=== PATIENT | male | born 1950 | race Caucasian/White ===

== ENCOUNTER → 2017-03-20 | Day surgery (SDC) | payer OTHER ==
[~2017-03-20] MED LIST: ACETAMINOPHEN 1000 MG/100 ML 100 ML IV; ACETAMINOPHEN/HYDROcodone 325 MG/5 MG TAB PO; DEXAMETHASONE SOD PHOS 4 MG/ML VIAL IV; DO NOT ADM ANY ANTICOAGULANT DRUGS; LIDOCAINE HCL 1% PF 5 ML SYRINGE OTHER; MIDAZOLAM HCL 2 MG/2 ML VIAL; MORPHINE SULFATE 2 MG/ML INJ; MORPHINE SULFATE 4 MG/ML INJ IV; ONDANSETRON HCL 4 MG/2 ML VIAL IV PUSH; PROPOFOL 200 MG/20 ML AMP IV; SODIUM CHLORID 0.9% 500 ML IV; SUCCINYLCHOLINE CHLORIDE 100 MG/5 ML SYRINGE IV PUSH
[2017-03-20] MEDS: CHLORHEXIDINE GLUCONATE 2 % 1 PACK (2 CLOTHS) TOPICAL (05:30)
[2017-03-20] MEDS: LACTATED RINGER'S 1000 ML IV (06:00)
[2017-03-20] MEDS: POVIDONE IODINE 5% (ANTISEPSIS KIT) 4 APPLICATIONS EACH NARE (06:00)
[2017-03-20 06:12] LABS: HEMATOCRIT 39.2 % (39.0-51.0); HEMOGLOBIN 13.6 GM/DL (13.0-17.0); MEAN CELL VOLUME 89.8 FL (80.0-100.0); MEAN CORPUSCULAR HEMOGLOBIN 31.2 PG (27.0-34.0); MEAN CORPUSCULAR HGB CONC 34.7 % (32.0-36.0); MEAN PLATELET VOLUME 8.3 FL (7.0-11.0); PLATELET COUNT 154 TH/MM3 (150-450); RED BLOOD COUNT 4.36 MIL/MM3 (4.50-5.90); WHITE BLOOD COUNT 5.5 TH/MM3 (4.0-11.0)
[2017-03-20 06:17] LABS: HEMO FLAGS AUTO DIFF
[2017-03-20] MEDS: METOPROLOL TARTRATE 25 MG TAB PO (06:20)
[2017-03-20 06:58] LABS: BANDS 1 % (0-6); LYMPHOCYTES 8 % (9-44); MONOCYTES 12 % (0-8); NEUTROPHIL # MANUAL DIFF 4.4 TH/MM3 (1.8-7.7); POLYS (SEG NEUTROPHILS) 79 % (16-70); WBC DIFF SAMPLE 100
[2017-03-20 06:59] LABS: PLATELET ESTIMATE SMEAR NORMAL (NORMAL); PLATELET MORPHOLOGY NORMAL (NORMAL); SCAN/DIFF FINAL DIFF MANUAL
== END | disposition home or self-care (01) ==
LOC: HSDC 05:11
DX: C09.9 Malignant neoplasm of tonsil, unspecified (principal); I10 Essential (primary) hypertension; E78.5 Hyperlipidemia, unspecified
CPT/HCPCS: 00320; 85007; 85027; 88304; 88305; 93005

== ENCOUNTER 2017-04-18 08:17 | Day surgery (SDC) | payer OTHER ==
[~2017-04-18] VITALS: Ht 172.7 cm; Wt 98.2 kg
[~2017-04-18 08:17] MED LIST changes: -ACETAMINOPHEN 1000 MG/100 ML 100 ML IV; -ACETAMINOPHEN/HYDROcodone 325 MG/5 MG TAB PO; -DEXAMETHASONE SOD PHOS 4 MG/ML VIAL IV; -DO NOT ADM ANY ANTICOAGULANT DRUGS; +ECASA81 PO; +FLUT1SPR5 EACH NARE; +HYDR-3516 PO; -LIDOCAINE HCL 1% PF 5 ML SYRINGE OTHER; +LISI-519 PO; +METO50TA PO; -MIDAZOLAM HCL 2 MG/2 ML VIAL; -MORPHINE SULFATE 2 MG/ML INJ; -MORPHINE SULFATE 4 MG/ML INJ IV; +OMEP20TA93 PO; -ONDANSETRON HCL 4 MG/2 ML VIAL IV PUSH; -PROPOFOL 200 MG/20 ML AMP IV; +ROSU1TAB4 PO; -SODIUM CHLORID 0.9% 500 ML IV; -SUCCINYLCHOLINE CHLORIDE 100 MG/5 ML SYRINGE IV PUSH; +TOFA5TAB PO; +TRAM50TA PO
[2017-04-18 08:30] VITALS: BP 147/86; PULSE 53; RESP 20; TEMP 98.4; O2SAT 99
[2017-04-18] MEDS ORDERED: VITA2000 PO (08:53)
[2017-04-18] MEDS ORDERED: ceFAZolin 2 GM PREMIX 50 ML - implanted port/tunneled catheter insertion IV SCH (09:00)
[2017-04-18] MEDS ORDERED: SODIUM CHLORIDE 0.9% 1000 ML IV SCH (09:00)
[2017-04-18 09:21] LABS: PROTHROMBIN TIME - PATIENT 10.2 SEC (9.8-11.6)
[2017-04-18] MEDS: VANCOMYCIN 1000 MG/NS 250 ML - implanted port/tunneled catheter IV SCH ×4 (09:35→09:37)
[2017-04-18] MEDS ORDERED: MIDAZOLAM HCL 2 MG/2 ML VIAL ONE (10:17)
--- NOTE | 2017-04-18 11:20 | PD.RAD ---
Post Procedure Progress Note Pre Procedure Diagnosis: (1) Tonsillar cancer Post Procedure Diagnosis: (1) Tonsillar cancer Procedure Date: Apr 18, 2017 Supervising Radiologist: Meek Guallpa JR Proceduralist/Assist: Ani Bassett, RT(R)(), Myrna Hull RT(R) Anesthesia: Conscious Sedation Plan of Activity Patient to Unit: ROPU Patient Condition: Good See PACS Report for procedural detail/treatment Central Venous Access Device Procedure 1 Right Internal Jugular Infusaport Placement single lumen Polish: 8 Findings: Port in good position and functions well. OK to use Plan F/U with IR or a physician in 10-14 days for a site check Jr. Ramu,Meek Rivera MD Apr 18, 2017 11:20
[2017-04-18 11:25] VITALS: BP 129/72; PULSE 53; RESP 16; TEMP 97.6; O2SAT 94
[2017-04-18] MEDS ORDERED: SODIUM CHLORIDE 0.9% FLUSH 10 ML FLUSH IVF PRN (11:30)
[2017-04-18 11:40] VITALS: BP 143/76; PULSE 66; RESP 16; O2SAT 97
[2017-04-18 12:10] VITALS: BP 111/56; PULSE 61; RESP 18; O2SAT 95
--- NOTE | 2017-04-18 12:12 | RADRPT ---
EXAM DATE/TIME: 04/18/2017 10:12 [facility] COMPARISON: No previous studies available for comparison. INDICATIONS : Patient with a history of tonsillar cancer. MEDICAL HISTORY : Rheumatoid arthritis Myocardial infarction GERD Kidney stones Tonsillar cancer SURGICAL HISTORY : Coronary stents Colonoscopy ENCOUNTER: Initial ACUITY: 2 months PAIN SCORE: 3/10 LOCATION: Back FLUORO TIME: 0.4 minutes IMAGE SERIES: 1 SEDATION TIME: 30 minutes ACCESS: Right internal jugular vein SEDATION: 1.) 2.5 mg midazolam (Versed) IV 2.) 125 mcg fentanyl (Sublimaze) IV Prophylactic antibiotics were administered with appropriate pre-procedure timing. Vancomycin within 2 hours of procedure, Ancef (or alternative) within 1 hour of procedure. DEVICE: 1. 8 Ukrainian single lumen Bard Power Port PROCEDURE : 1. Continuous pulse oximetry and EKG monitoring. 2. Intravenous conscious sedation. 3. Ultrasound guidance for venous access. 4. Fluoroscopic guided implantable central venous port placement. The patient was placed supine. The neck was prepped in sterile fashion. Full sterile technique was u sed, including cap, mask, sterile gloves and gown, and a large sterile sheet. Hand hygiene and 2% ch lorhexidine Betadine was utilized per protocol for cutaneous antisepsis with appropriate dry time for site. Sterile gel and sterile probe cover were utilized for ultrasound guidance. The skin and sub cutaneous tissues were infiltrated with local anesthetic solution. Under direct ultrasound guidance, central venous access was accomplished in the targeted vessel. The ultrasound images depicting access guidance were stored and saved to PACS for permanent record. A s ubcutaneous pocket was created using blunt dissection. The port was introduced to the pocket. The c atheter tubing was fed through a subcutaneous tunnel to the venotomy site. The catheter tubing was c ut to a suitable length and then was introduced through a valved Peel-Away sheath and positioned with catheter tubing tip at the cavo-atrial junction level. The pocket incision was closed with subcutic ular Vicryl suture. Steri-Strips were applied. The port was flushed and locked with heparin solutio n per protocol. Sterile dressing was applied to the site. The patient tolerated the procedure well. Conscious sedation was performed with the prescribed dosages and duration as above in the presence of an independent trained radiology nurse to assist in the monitoring of the patient. EKG and oximetry remained stable throughout the procedure. The patient tolerated the procedure well and there were no complications. The patient was sent to post anesthesia recovery in stable condition. CONCLUSION: Uncomplicated ultrasound and fluoroscopic guided implanted central venous port catheter placement as described in detail above. An 8 Ukrainian Power port was placed. Meek Guallpa Jr., MD on April 18, 2017 at 12:10 Board Certified Radiologist. This report was verified electronically.
[2017-04-18 12:40] VITALS: BP 110/73; PULSE 72; RESP 20; O2SAT 97
== END 2017-04-18 13:15 | disposition home or self-care (01) ==
LOC: HROP 08:17 → HRIP 08:20 → HROP 13:15
PROVIDERS: ATTEND Internal Medicine
DX: Z45.2 Encounter for adjustment and management of vascular access device (principal); C09.9 Malignant neoplasm of tonsil, unspecified; K21.9 Gastro-esophageal reflux disease without esophagitis; M06.9 Rheumatoid arthritis, unspecified; I25.2 Old myocardial infarction; Z95.5 Presence of coronary angioplasty implant and graft; Z87.442 Personal history of urinary calculi; Z79.82 Long term (current) use of aspirin
CPT/HCPCS: 36561; 76937; 77001; 85610; 85730; 99152; 99153; C1788; J0690; J1642; J2250; J3010; J3370; J7030; J7050

== ENCOUNTER 2017-05-20 09:16 | Day surgery (SDC) | payer OTHER ==
[~2017-05-20] VITALS: Ht 172.7 cm; Wt 88.6 kg
[~2017-05-20 09:16] MED LIST changes: +VITA2000 PO
[2017-05-20] MEDS ORDERED: IOHEXOL 350 MG/ML 50 ML BTL (for RAD DIAG) G-TUBE ONE (09:17)
[2017-05-20 09:25] VITALS: BP 168/90; PULSE 90; RESP 18; TEMP 98.1
[2017-05-20] MEDS ORDERED: SODIUM CHLORIDE 0.9% 1000 ML IV SCH (10:00)
[2017-05-20 10:25] VITALS: BP 134/81; PULSE 80; RESP 18; TEMP 98.5; O2SAT 95
[2017-05-20 10:42] LABS: INTERNATIONAL NORMALIZED RATIO 1.1 RATIO; PROTHROMBIN TIME - PATIENT 10.8 SEC (9.8-11.6)
[2017-05-20] MEDS ORDERED: MIDAZOLAM HCL 5 MG/5 ML VIAL ONE (11:28)
[2017-05-20] MEDS ORDERED: fentaNYL CITRATE 250 MCG/5 ML AMP ONE (11:28)
[2017-05-20] MEDS ORDERED: GLUCAGON 1 MG/ML VIAL ONE (11:28)
--- NOTE | 2017-05-20 15:38 | PD.RAD ---
Post Procedure Progress Note Pre Procedure Diagnosis: (1) Tonsillar cancer Post Procedure Diagnosis: (1) Tonsillar cancer Procedure Date: May 20, 2017 Supervising Radiologist: Meek Guallpa JR Proceduralist/Assist: Raquel Rodriguez, RT(R)(CV), Myrna Hull RT(R) Anesthesia: Conscious Sedation Plan of Activity Patient to Unit: ROPU Patient Condition: Good See PACS Report for procedural detail/treatment Feeding Tube Gastrostomy Placement Armenian: 18 Findings: G tube in good position. OK to use. Plan T fasteners will fall off on their own in approx 3 weeks. Jr. Ramu,Meek Rivera MD May 20, 2017 15:38
[2017-05-20 15:45] VITALS: BP 114/76; PULSE 80; RESP 18; TEMP 98.6; O2SAT 97
[2017-05-20 16:00] VITALS: BP 113/78; PULSE 76; RESP 18; O2SAT 99
--- NOTE | 2017-05-20 16:11 | RADRPT ---
EXAM DATE/TIME: 05/20/2017 14:28 [facility] COMPARISON: No previous studies available for comparison. INDICATIONS : Patient with left tonsillary mass.Invasive squamous cell carcinoma. MEDICAL HISTORY : 1. CAD 2. WI 3. kidney stones 4. acid reflux 5. HTN 6. Rheumatoid arthritis SURGICAL HISTORY : 1. Coronary stents 2.Lt tonsill Bx 3. Colonoscopy 4. Nisssen procedure ENCOUNTER: Initial ACUITY: 1 month PAIN SCORE: 0/10 FLUORO TIME: 2.2 minutes IMAGE SERIES: 2 SEDATION TIME: 30 minutes CONTRAST: 20 cc Omnipaque (iohexol) 350 MEDICATION(S): 1.) 4 mg midazolam (Versed) IV 2.) 200 mcg Fentanyl (Sublimaze) IV DEVICE(S): 1.) 18 Fr gastrostomy tube PROCEDURE : 1. Limited abdominal ultrasound. 2. Fluoroscopically guided gastrostomy tube placement. 3. Conscious sedation with continuous EKG and oximetry monitoring. The risks, benefits and alternatives to the procedure were explained and verbal and written consent w as obtained. The site was prepped in sterile fashion. Full sterile technique was used, including ca p, mask, sterile gloves and gown and a large sterile sheet. Hand hygiene and 2% chlorhexidine and/or betadine/alcohol prep was utilized per protocol for cutaneous antisepsis. The skin and subcutaneous tissues were infiltrated with local anesthetic solution. Sterile gel and sterile probe cover were u tilized for ultrasound guidance. Ultrasound was used to felicity the position of the liver. The stomach was insufflated with room air. Th ree percutaneous fasteners were placed to secure the anterior gastric wall. A small incision was made between the fasteners. The stomach was accessed with an 18 gauge needle. A n 0.035 wire was advanced into the small bowel. The tract was dilated. The gastrostomy tube was int roduced through a peel-away sheath. The position was confirmed with an injection of contrast. Conscious sedation was performed with the prescribed dosages and duration as above in the presence of an independent trained radiology nurse to assist in the monitoring of the patient. EKG and oximetry remained stable throughout the procedure. The patient tolerated the procedure well and there were n o complications. The patient was sent to post anesthesia recovery in stable condition. CONCLUSION: Uncomplicated gastrostomy tube placement as above. Meek Guallpa Jr., MD on May 20, 2017 at 16:07 Board Certified Radiologist. This report was verified electronically.
[2017-05-20 16:30] VITALS: BP 111/78; PULSE 71; RESP 16; O2SAT 99
[2017-05-20 17:00] VITALS: BP 125/79; PULSE 70; RESP 18; O2SAT 99
== END 2017-05-20 17:42 | disposition home or self-care (01) ==
LOC: HROP 09:16 → HRIP 09:20 → HROP 17:42
PROVIDERS: ATTEND Radiology Radiation Oncology
DX: C09.8 Malignant neoplasm of overlapping sites of tonsil (principal); I25.10 Atherosclerotic heart disease of native coronary artery without angina pectoris; K21.9 Gastro-esophageal reflux disease without esophagitis; I10 Essential (primary) hypertension; M06.9 Rheumatoid arthritis, unspecified; Z95.5 Presence of coronary angioplasty implant and graft; Z87.442 Personal history of urinary calculi; Z01.818 Encounter for other preprocedural examination
CPT/HCPCS: 49440; 85610; 85730; 99152; 99153; C1769; C1887; J0690; J1610; J2250; J3010; Q9967

== ENCOUNTER 2017-06-02 10:00 | Emergency (ER) | payer OTHER ==
[~2017-06-02] VITALS: Ht 172.7 cm; Wt 87.5 kg
[2017-06-02 10:08] VITALS: BP 128/79; PULSE 116; RESP 22; TEMP 97.9; O2SAT 98
[2017-06-02 10:28] VITALS: BP 108/72; PULSE 114; RESP 12; O2SAT 97
--- NOTE | 2017-06-02 10:35 | PD ---
HPI Chief Complaint: Field Sales Specialist Problem Time Seen by Provider: 10:34 Travel History International Travel<30 days: No Contact w/Intl Traveler<30days: No Traveled to known affect area: No PFSH Past Medical History Cancer: Yes (THROAT) Cardiovascular Problems: Yes (2 X STENTS) Diabetes: No Endocrine: No Gastrointestinal Disorders: Yes (GERD, DIFFICULTY SWALLOWING) Genitourinary: Yes (KIDNEY DISEASE MILD) Hepatitis: No Hiatal Hernia: No Hypertension: Yes Immune Disorder: Yes (RA) Musculoskeletal: Yes (RA) Neurologic: No Psychiatric: No Reproductive: No Respiratory: No Immunizations Current: Yes Thyroid Disease: No Past Surgical History Abdominal Surgery: Yes (WALTER PROCEDURE 1998) AICD: No Body Medical Devices: 2 CARDIAC Cardiac Surgery: Yes (2 STENTS) Ear Surgery: No Endocrine Surgery: No Eye Surgery: No Genitourinary Surgery: No Gynecologic Surgery: Yes (VASECTOMY) Joint Replacement: No Oral Surgery: No Pacemaker: No Thoracic Surgery: No Other Surgery: Yes Social History Alcohol Use: No Tobacco Use: No Substance Use: No Allergies-Medications (Allergen,Severity, Reaction): Coded Allergies: No Known Allergies (Unverified , 04/18/17) Reported Meds & Prescriptions Reported Meds & Active Scripts Active Reported Vitamin D3 (Cholecalciferol) 2,000 Unit Cap 2,000 Units PO DAILY Aspirin DR (Aspirin) 81 Mg Tabdr 81 Mg PO DAILY Hydrocodone-Acetaminophen 5-325 mg Tab 1 Tab PO Q6H PRN Flonase Nasal [place] (Fluticasone Nasal [place]) 50 Mcg/Act [place] 100 Mcg EACH NARE HS Omeprazole 20 Mg Tab 20 Mg PO BID Lisinopril 5 Mg Tab 5 Mg PO DAILY Xeljanz (Tofacitinib) 5 Mg Tab 5 Mg PO BID Tramadol (Tramadol HCl) 50 Mg Tab 50 Mg PO Q8H PRN Rosuvastatin (Rosuvastatin Calcium) 5 Mg Tab 5 Mg PO HS Metoprolol Tartrate 50 Mg Tab 50 Mg PO BID Data Data Last Documented VS Vital Signs Date Time Temp Pulse Resp B/P (MAP) Pulse Ox O2 Delivery O2 Flow Rate FiO2 06/02/17 12:41 06/02/17 10:28 114 12 97 Room Air 06/02/17 10:08 97.9 Orders Orders Abdomen, Single View (06/02/17 ) Ed Discharge Order (06/02/17 12:32) Sanaz Jauregui MD Jun 02, 2017 10:35
--- NOTE | 2017-06-02 12:15 | RADRPT ---
EXAM DATE/TIME: 06/02/2017 11:44 [facility] COMPARISON: No previous studies available for comparison. INDICATIONS : Post G tube placement. MEDICAL HISTORY : Myocardial infarction. Hypertension Coronary artery disease. SURGICAL HISTORY : Coronary artery stent. ENCOUNTER: Initial ACUITY: 1 day PAIN SCORE: 0/10 LOCATION: abdomen. FINDINGS: There is a percutaneous gastrotomy tube present with the tip identified within the distal portion of the stomach. Contrast opacifies the stomach and duodenum and jejunum without evidence of extravasatio n. Examination of the abdomen demonstrates a normal bowel gas pattern. No free air is identified. No o rganomegaly is evident. Osseous structures are intact. CONCLUSION: No evidence of obstruction.Percutaneous gastrotomy tube appropriate position. No evidence of leak. Rosalinda Echevarria MD on June 02, 2017 at 12:11 Board Certified Radiologist. This report was verified electronically.
--- NOTE | 2017-06-02 12:27 | PD ---
HPI Chief Complaint: Lead Housekeeper Problem Time Seen by Provider: 11:35 Travel History International Travel<30 days: No Contact w/Intl Traveler<30days: No Traveled to known affect area: No History of Present Illness HPI 66 year old male presents to the emergency department after his G tube popped out around 8am this morning. Ghada has history of RA, UT with stent x2, acid reflux, renal stones, head and neck cancer. He is currently undergoing chemotherapy and radiation therapy for cancer. He had G tube placed 2 weeks ago for inability to swallow. He states he has been getting nauseated after feedings. Patient states current pain is 7/10 without radiation, aching. Mild severity. PFSH Past Medical History Cancer: Yes (THROAT) Cardiovascular Problems: Yes (2 X STENTS) Diabetes: No Endocrine: No Gastrointestinal Disorders: Yes (GERD, DIFFICULTY SWALLOWING) Genitourinary: Yes (KIDNEY DISEASE MILD) Hepatitis: No Hiatal Hernia: No Hypertension: Yes Immune Disorder: Yes (RA) Musculoskeletal: Yes (RA) Neurologic: No Psychiatric: No Reproductive: No Respiratory: No Immunizations Current: Yes Thyroid Disease: No Past Surgical History Abdominal Surgery: Yes (WALTER PROCEDURE 1998) AICD: No Body Medical Devices: 2 CARDIAC Cardiac Surgery: Yes (2 STENTS) Ear Surgery: No Endocrine Surgery: No Eye Surgery: No Genitourinary Surgery: No Gynecologic Surgery: Yes (VASECTOMY) Joint Replacement: No Oral Surgery: No Pacemaker: No Thoracic Surgery: No Other Surgery: Yes Social History Alcohol Use: No Tobacco Use: No Substance Use: No Allergies-Medications (Allergen,Severity, Reaction): Coded Allergies: No Known Allergies (Unverified , 04/18/17) Reported Meds & Prescriptions Reported Meds & Active Scripts Active Reported Vitamin D3 (Cholecalciferol) 2,000 Unit Cap 2,000 Units PO DAILY Aspirin DR (Aspirin) 81 Mg Tabdr 81 Mg PO DAILY Hydrocodone-Acetaminophen 5-325 mg Tab 1 Tab PO Q6H PRN Flonase Nasal [place] (Fluticasone Nasal [place]) 50 Mcg/Act [place] 100 Mcg EACH NARE HS Omeprazole 20 Mg Tab 20 Mg PO BID Lisinopril 5 Mg Tab 5 Mg PO DAILY Xeljanz (Tofacitinib) 5 Mg Tab 5 Mg PO BID Tramadol (Tramadol HCl) 50 Mg Tab 50 Mg PO Q8H PRN Rosuvastatin (Rosuvastatin Calcium) 5 Mg Tab 5 Mg PO HS Metoprolol Tartrate 50 Mg Tab 50 Mg PO BID Review of Systems Except as stated in HPI: all other systems reviewed are Neg Physical Exam Narrative GENERAL: Well developed, well nourished male patient, afebrile. SKIN: Warm and dry. HEAD: Normocephalic. Atraumatic. EYES: No scleral icterus. No injection or drainage. NECK: Supple, trachea midline. No JVD or lymphadenopathy. CARDIOVASCULAR: Regular rate and rhythm without murmurs, gallops, or rubs. RESPIRATORY: Breath sounds equal bilaterally. No accessory muscle use. Lung sounds are clear to auscultation. GASTROINTESTINAL: Abdomen soft, non-tender, nondistended. Patient has g tube insertion site to right abdomen without evidence of infection. MUSCULOSKELETAL: No cyanosis, or edema. BACK: Nontender without obvious deformity. No CVA tenderness. Data Data Last Documented VS Vital Signs Date Time Temp Pulse Resp B/P (MAP) Pulse Ox O2 Delivery O2 Flow Rate FiO2 06/02/17 10:28 114 12 108/72 (84) 97 Room Air 06/02/17 10:08 97.9 Orders Orders Abdomen, Single View (06/02/17 ) Ed Discharge Order (06/02/17 12:32) MDM Medical Decision Making Medical Screen Exam Complete: Yes Emergency Medical Condition: Yes Medical Record Reviewed: Yes Interpretation(s) x-ray abdomen - CONCLUSION: No evidence of obstruction.Percutaneous gastrotomy tube appropriate position. No evidence of leak. Differential Diagnosis g tube malfunction vs. nausea/vomiting vs. medical clearance Narrative Course 66 year old male presents to the emergency department after his g tube fell out. G tube is replaced with 18F G tube. X-ray with Gastrografin is ordered to verify placement. X-ray shows no evidence of obstruction.Percutaneous gastrotomy tube appropriate position. No evidence of leak. Patient is to follow up with oncology. He is to return for any acute, worsening of symptoms. Diagnosis Primary Impression: Gastrostomy tube dysfunction Patient Instructions: General Instructions, Tube Feeding (GEN) Additional Instructions: Follow up with oncologist. Return to the emergency department for any acute, worsening of symptoms. Med/Other Pt SpecificInfo: No Change to Meds Disposition: 01 DISCHARGE HOME Condition: Stable Thersee Simons Jun 02, 2017 12:27
== END 2017-06-02 12:41 | disposition home or self-care (01) ==
LOC: NEPC 10:00
DX: K94.23 Gastrostomy malfunction (principal); C14.0 Malignant neoplasm of pharynx, unspecified; I10 Essential (primary) hypertension
CPT/HCPCS: 74018; 99284

== ENCOUNTER 2017-06-04 19:58 | Emergency (ER) | payer OTHER ==
[2017-06-04 20:23] VITALS: BP 131/72; PULSE 72; RESP 16; TEMP 99.3; O2SAT 95
[2017-06-04] MEDS ORDERED: ONDANSETRON HCL 4 MG/2 ML VIAL IV PUSH ONE (22:00)
--- NOTE | 2017-06-04 22:01 | RADRPT ---
EXAM DATE/TIME: 06/04/2017 21:33 [facility] COMPARISON: No previous studies available for comparison. INDICATIONS : Fever. MEDICAL HISTORY : Renal calculi. Rheumatoid arthritis. Myocardial infarction. Hypertension Coronary artery disease , Invasive squamous cell carcinoma SURGICAL HISTORY : Coronary artery stent. Lt tonsil Bx, Infusaport, G-tube ENCOUNTER: Initial ACUITY: 1 day PAIN SCORE: 0/10 LOCATION: Bilateral chest FINDINGS: A single view of the chest demonstrates the lungs to be symmetrically aerated without evidence of mas s, infiltrate or effusion. The cardiomediastinal contours are unremarkable. Osseous structures are intact. There is a right subclavian implantable port catheter in place. CONCLUSION: No acute disease. Tyrese Araujo MD on June 04, 2017 at 21:58 Board Certified Radiologist. This report was verified electronically.
--- NOTE | 2017-06-04 22:03 | RADRPT ---
EXAM DATE/TIME: 06/04/2017 21:34 [facility] COMPARISON: ABDOMEN SINGLE VIEW, June 02, 2017, 11:44. EXTERNAL COMPARISON : INDICATIONS : Evaluate G-tube placement. MEDICAL HISTORY : Renal calculi. Rheumatoid arthritis. Myocardial infarction. Hypertension Coronary artery disease , Invasive squamous cell carcinoma SURGICAL HISTORY : Coronary artery stent. Lt tonsil Bx, Infusaport, G-tube ENCOUNTER: Initial ACUITY: 1 day PAIN SCORE: 0/10 LOCATION: Left upper quadrant abdomen FINDINGS: 2 AP supine views of the abdomen and upper and mid pelvis were obtained. This demonstrates a gastrost jenifer tube in place with contrast in the stomach and proximal small bowel. The gastrostomy tube is loca geraldine in the mid to distal stomach with no extravasation of contrast. There is no free air. The bowel g as pattern is unremarkable. CONCLUSION: Gastrostomy tube in place in the mid to distal stomach. Tyrese Araujo MD on June 04, 2017 at 21:59 Board Certified Radiologist. This report was verified electronically.
[2017-06-04 22:19] LABS: AUTOMATED NEUTROPHIL # 1.1 TH/MM3 (1.8-7.7); BASOPHIL % 1.1 % (0.0-2.0); EOSINOPHIL % 1.3 % (0.0-4.0); HEMATOCRIT 33.4 % (39.0-51.0); HEMOGLOBIN 11.8 GM/DL (13.0-17.0); LYMPH % 14.1 % (9.0-44.0); LYMPHOCYTE # 0.2 TH/MM3 (1.0-4.8); MEAN CELL VOLUME 87.7 FL (80.0-100.0); MEAN CORPUSCULAR HEMOGLOBIN 31.1 PG (27.0-34.0); MEAN CORPUSCULAR HGB CONC 35.5 % (32.0-36.0); MEAN PLATELET VOLUME 7.5 FL (7.0-11.0); MONO % 11.6 % (0.0-8.0); MONOCYTE # 0.2 TH/MM3 (0-0.9); NEUT % 71.9 % (16.0-70.0); PLATELET COUNT 68 TH/MM3 (150-450); RED BLOOD COUNT 3.81 MIL/MM3 (4.50-5.90); RED CELL DISTRIBUTION WIDTH 14.3 % (11.6-17.2); WHITE BLOOD COUNT 1.6 TH/MM3 (4.0-11.0)
[2017-06-04 22:34] LABS: ALBUMIN 3.8 GM/DL (3.4-5.0); AST (GOT) 14 U/L (15-37); BICARBONATE 28.6 MEQ/L (21.0-32.0); BLOOD UREA NITROGEN 14 MG/DL (7-18); CALCIUM 9.6 MG/DL (8.5-10.1); CHLORIDE 100 MEQ/L (98-107); CREATININE 1.31 MG/DL (0.60-1.30); GLOMERULAR FILTRATION RATE 55 ML/MIN (>89); GLUCOSE,RANDOM 132 MG/DL (74-106); MAGNESIUM 1.7 MG/DL (1.5-2.5); SODIUM (NA) 139 MEQ/L (136-145)
[2017-06-04 22:37] LABS: LACTIC ACID SEPSIS PROTOCOL 2.4 mmol/L (0.4-2.0)
[2017-06-04 22:38] LABS: ALKALINE PHOSPHATASE 114 U/L (45-117); ALT (GPT) 17 U/L (12-78); TOTAL PROTEIN 8.2 GM/DL (6.4-8.2)
[2017-06-04 22:40] LABS: BILIRUBIN, URINE NEG (NEG); BLOOD, URINE NEG (NEG); GLUCOSE,URINE NEG (NEG); HYALINE CAST, URINE 2 /lpf (RARE); KETONE, URINE 10 mg/dL (NEG); MUCUS URINE FEW /lpf (OCC); NITRITE,URINE NEG (NEG); PH, URINE 5.5 (5.0-8.5); URINE COLOR YELLOW (YELLW/STRAW); URINE LEUKOCYTE ESTERASE NEG (NEG)
[2017-06-04] MEDS ORDERED: SODIUM CHLOR 0.9% 1000 ML INJ 1,000 ML IV ONE (22:45)
[2017-06-04 22:51] LABS: PROTHROMBIN TIME - PATIENT 9.8 SEC (9.8-11.6)
[2017-06-04 22:56] LABS: BANDS 31 % (0-6); LYMPHOCYTES 17 % (9-44); MONOCYTES 8 % (0-8); NEUTROPHIL # MANUAL DIFF 1.2 TH/MM3 (1.8-7.7); POLYS (SEG NEUTROPHILS) 43 % (16-70)
[2017-06-04 22:57] LABS: TOXIC GRANULATION 2+ (NORMAL)
[2017-06-05] MEDS ORDERED: CEFEPIME INJ 2,000 MG in SODIUM CHLORIDE 0.9% INJ 100 ML IV ONE (00:45)
[2017-06-05 01:19] VITALS: TEMP 98.6
--- NOTE | 2017-06-05 01:40 | PD ---
HPI Chief Complaint: Fever Time Seen by Provider: 21:24 Travel History International Travel<30 days: No Contact w/Intl Traveler<30days: No Traveled to known affect area: No History of Present Illness HPI 66-year-old male presents to the emergency department by private transportation for evaluation of fever and malfunctioning gastrostomy tube. Patient has been diagnosed with pharyngeal cancer is undergoing chemotherapy and radiation therapy. Patient is under the care of Dr. Soriano. reports that at home patient typically had a temperature elevation of 100.2F and then 100.6F. Patient's called the oncology center and was encouraged to come to the emergency room for evaluation. Patient is also here because on Saturday he had his gastrostomy tube replaced as he had accidentally yanked out his gastrostomy tube. Gastrostomy tube was replaced and confirmed with Gastrografin abdominal film. Patient continues to feel as though he is not completely himself. Patient had contacted his managing provider who encouraged him to return home but in the interim to come to the emergency room for evaluation. Patient complains of cough and sore throat. PFSH Past Medical History Narrative Medical CAD pharyngeal cancer; no tobacco use; nursing notes reviewed Cancer: Yes (THROAT) Cardiovascular Problems: Yes (2 X STENTS) Diabetes: No Endocrine: No Gastrointestinal Disorders: Yes (GERD, DIFFICULTY SWALLOWING) Genitourinary: Yes (KIDNEY DISEASE MILD) Hepatitis: No Hiatal Hernia: No Hypertension: Yes Immune Disorder: Yes (RA) Musculoskeletal: Yes (RA) Neurologic: No Psychiatric: No Reproductive: No Respiratory: No Immunizations Current: Yes Thyroid Disease: No Past Surgical History Abdominal Surgery: Yes (WALTER PROCEDURE 1998) AICD: No Body Medical Devices: 2 CARDIAC Cardiac Surgery: Yes (2 STENTS) Ear Surgery: No Endocrine Surgery: No Eye Surgery: No Genitourinary Surgery: No Gynecologic Surgery: Yes (VASECTOMY) Joint Replacement: No Oral Surgery: No Pacemaker: No Thoracic Surgery: No Other Surgery: Yes Social History Alcohol Use: No Tobacco Use: No Substance Use: No Allergies-Medications (Allergen,Severity, Reaction): Coded Allergies: levofloxacin (Verified Allergy, Severe, 06/05/17) Reported Meds & Prescriptions Reported Meds & Active Scripts Active Prednisone Liq (Prednisone) 5 Mg/5 Ml Soln 20 Mg G-TUBE BID 3 Days Ceftin Liq (Cefuroxime Axetil) 250 Mg/5 Ml Susp 500 Mg PO BID 10 Days Reported Vitamin D3 (Cholecalciferol) 2,000 Unit Cap 2,000 Units PO DAILY Aspirin DR (Aspirin) 81 Mg Tabdr 81 Mg PO DAILY Hydrocodone-Acetaminophen 5-325 mg Tab 1 Tab PO Q6H PRN Flonase Nasal [place] (Fluticasone Nasal [place]) 50 Mcg/Act [place] 100 Mcg EACH NARE HS Omeprazole 20 Mg Tab 20 Mg PO BID Lisinopril 5 Mg Tab 5 Mg PO DAILY Xeljanz (Tofacitinib) 5 Mg Tab 5 Mg PO BID Tramadol (Tramadol HCl) 50 Mg Tab 50 Mg PO Q8H PRN Rosuvastatin (Rosuvastatin Calcium) 5 Mg Tab 5 Mg PO HS Metoprolol Tartrate 50 Mg Tab 50 Mg PO BID Review of Systems Except as stated in HPI: all other systems reviewed are Neg Physical Exam Narrative GENERAL: Well-nourished male no acute distress no respiratory distress SKIN: Warm and dry. HEAD: Normocephalic. EYES: No scleral icterus. No injection or drainage. ENT: Posterior pharynx erythematous with plaque-like lesions no edema or otherwise erythema extremities dry NECK: Supple, trachea midline. No JVD or lymphadenopathy. CARDIOVASCULAR: Regular rate and rhythm without murmurs, gallops, or rubs. RESPIRATORY: Breath sounds equal bilaterally. No accessory muscle use. GASTROINTESTINAL: Abdomen soft, non-tender, nondistended. MUSCULOSKELETAL: No cyanosis, or edema. BACK: Nontender without obvious deformity. No CVA tenderness. Data Data Last Documented VS Vital Signs Date Time Temp Pulse Resp B/P (MAP) Pulse Ox O2 Delivery O2 Flow Rate FiO2 06/05/17 01:19 98.6 06/04/17 20:23 72 16 131/72 (91) 95 Orders Orders Sepsis Workup Initiated (06/04/17 ) Complete Blood Count With Diff (06/04/17 21:24) Comprehensive Metabolic Panel (06/04/17 21:24) Prothrombin Time / Inr (Pt) (06/04/17 21:24) Act Partial Throm Time (Ptt) (06/04/17 21:24) Lactic Acid Sepsis Protocol (06/04/17 21:24) Magnesium (Mg) (06/04/17 21:24) Lipase (06/04/17 21:24) Urinalysis - C+S If Indicated (06/04/17 21:24) Blood Culture (06/04/17 21:24) Chest, Single Ap (06/04/17 21:24) Blood Glucose (06/04/17 21:24) Ecg Monitoring (06/04/17 21:24) Iv Access Insert/Monitor (06/04/17 21:24) Oximetry (06/04/17 21:24) Oxygen Administration (06/04/17 21:24) Abdomen, Single View (06/04/17 ) Ondansetron Inj (Zofran Inj) (06/04/17 22:00) Sodium Chlor 0.9% 1000 Ml Inj (Ns 1000 M (06/04/17 22:45) Cefepime Inj (Maxipime Inj) (06/05/17 00:45) Levofloxacin Liq (Levaquin Liq) (06/05/17 01:45) Sodium Chlor 0.9% 1000 Ml Inj (Ns 1000 M (06/05/17 02:15) Sodium Chlor 0.9% 1000 Ml Inj (Ns 1000 M (06/05/17 02:15) Ed Discharge Order (06/05/17 02:09) Diphenhydramine Inj (Benadryl Inj) (06/05/17 03:00) Methylprednisolone So Succ Inj (Solumedr (06/05/17 03:00) Famotidine Inj (Pepcid Inj) (06/05/17 03:00) Sodium Chloride 0.9% Flush (Ns Flush) (06/05/17 03:00) Labs Laboratory Tests Test 06/04/17 22:00 06/04/17 22:15 06/05/17 00:14 White Blood Count 1.6 TH/MM3 Red Blood Count 3.81 MIL/MM3 Hemoglobin 11.8 GM/DL Hematocrit 33.4 % Mean Corpuscular Volume 87.7 FL Mean Corpuscular Hemoglobin 31.1 PG Mean Corpuscular Hemoglobin Concent 35.5 % Red Cell Distribution Width 14.3 % Platelet Count 68 TH/MM3 Mean Platelet Volume 7.5 FL Neutrophils (%) (Auto) 71.9 % Lymphocytes (%) (Auto) 14.1 % Monocytes (%) (Auto) 11.6 % Eosinophils (%) (Auto) 1.3 % Basophils (%) (Auto) 1.1 % Neutrophils # (Auto) 1.1 TH/MM3 Lymphocytes # (Auto) 0.2 TH/MM3 Monocytes # (Auto) 0.2 TH/MM3 Eosinophils # (Auto) 0.0 TH/MM3 Basophils # (Auto) 0.0 TH/MM3 CBC Comment AUTO DIFF Differential Total Cells Counted 100 Neutrophils % (Manual) 43 % Band Neutrophils % 31 % Lymphocytes % 17 % Monocytes % 8 % Eosinophils % 1 % Neutrophils # (Manual) 1.2 TH/MM3 Differential Comment FINAL DIFF MANUAL Toxic Granulation 2+ Platelet Estimate LOW Platelet Morphology Comment ENLARGED Red Cell Morphology Comment NORMAL Prothrombin Time 9.8 SEC Prothromb Time International Ratio 1.0 RATIO Activated Partial Thromboplast Time 25.4 SEC Blood Urea Nitrogen 14 MG/DL Creatinine 1.31 MG/DL Random Glucose 132 MG/DL Total Protein 8.2 GM/DL Albumin 3.8 GM/DL Calcium Level 9.6 MG/DL Magnesium Level 1.7 MG/DL Alkaline Phosphatase 114 U/L Aspartate Amino Transf (AST/SGOT) 14 U/L Alanine Aminotransferase (ALT/SGPT) 17 U/L Total Bilirubin 2.0 MG/DL Sodium Level 139 MEQ/L Potassium Level 3.6 MEQ/L Chloride Level 100 MEQ/L Carbon Dioxide Level 28.6 MEQ/L Anion Gap 10 MEQ/L Estimat Glomerular Filtration Rate 55 ML/MIN Lactic Acid Level 2.4 mmol/L 1.4 mmol/L Lipase 52 U/L Urine Color YELLOW Urine Turbidity CLEAR Urine pH 5.5 Urine Specific [place] 1.019 Urine Protein 30 mg/dL Urine Glucose (UA) NEG mg/dL Urine Ketones 10 mg/dL Urine Occult Blood NEG Urine Nitrite NEG Urine Bilirubin NEG Urine Urobilinogen 4.0 MG/DL Urine Leukocyte Esterase NEG Urine RBC 2 /hpf Urine WBC 3 /hpf Urine Hyaline Casts 2 /lpf Urine Mucus FEW /lpf Microscopic Urinalysis Comment CULT NOT INDICATED MDM Medical Decision Making Medical Screen Exam Complete: Yes Emergency Medical Condition: Yes Medical Record Reviewed: Yes Interpretation(s) Last Impressions Chest X-Ray [id number]/04/[id number] Signed Impressions: Service Date/Time: Sunday, June 04, 2017 21:33 - CONCLUSION: No acute disease. Tyrese Araujo MD Abdomen X-Ray 06/04/17 0000 Signed Impressions: Service Date/Time: Sunday, June 04, 2017 21:34 - CONCLUSION: Gastrostomy tube in place in the mid to distal stomach. Tyrese Araujo MD CBC & BMP Diagram 06/04/17 22:00 Total Protein 8.2 #, Albumin 3.8, Calcium Level 9.6, Magnesium Level 1.7, Alkaline Phosphatase 114, Aspartate Amino Transf (AST/SGOT) 14 L, Alanine Aminotransferase (ALT/SGPT) 17, Total Bilirubin 2.0 H Vital Signs Date Time Temp Pulse Resp B/P (MAP) Pulse Ox O2 Delivery O2 Flow Rate FiO2 06/05/17 01:19 98.6 06/04/17 20:23 99.3 72 16 131/72 (91) 95 Lactic acid 2.4; 2 hour lactic acid 1.4 Differential Diagnosis Gastrostomy tube occlusion, distress trace female placement,febrile illness, sepsis Narrative Course IV access obtained specimens collections of resulting imaging of the abdomen with Gastrografin performed to evaluate patency and functionality G-tube; gastric tube is in proper positioning and bedside Chief tube patency confirmed with imaging study with Gastrografin; patient given trial of functionality of G-tube and identified to have reflux associated with his respiratory rate. Trial performed with patient sitting upright and not slumping forward. @ 2:50 acute urticarial allergic reaction after receiving Levaquin via gastric tube; patient immediately administered Benadryl 25 mg IV Pepcid 20 mg IV and Solu-Medrol 125 mg IV At 3:25 AM marked improvement of the urticaria no evidence of angioedema no lip tongue or visible throat edema no wheezing no shortness of breath no tachycardia no near syncope or syncope and no vomiting. Patient has allergic reaction to Levaquin as of this time and is not to take this medication prescription for Levaquin canceled and patient given prescription for Augmentin Physician Communication Physician Communication discussed with Dr Medrano --levaqlydia will see in the office Diagnosis Primary Impression: Complication of gastrostomy tube Additional Impressions: Pharyngeal cancer Mucositis Allergic reaction to drug Pancytopenia Referrals: Emani Soriano MD 1 day Patient Instructions: General Instructions Additional Instructions: Increase fluid hydration Take antibiotic as prescribed Return to the emergency department for any concerns or change in condition Monitor temperature for fever take acetaminophen/Tylenol every 4 hours as needed for fever 100.4F or greater Follow-up with your oncologist 1 day Do not take quinolones/Levaquin-levofloxacin/Cipro-ciprofloxacin as you are allergic to this medication Take children's Benadryl every 4-6 hours 25-50 mg over the next 7 days for hives /allergic reaction Take Zantac 150 crushed twice daily for 7 days for allergic reaction Take steroid as prescribed 3 days Return to the emergency department for any concerns or change in condition Med/Other Pt SpecificInfo: Prescription(s) given Scripts Prednisone Liq (Prednisone Liq) 5 Mg/5 Ml Soln 20 MG G-TUBE BID for 3 Days, #120 ML 0 Refills Prov: Danielle Fonseca MD 06/05/17 Cefuroxime Liq (Ceftin Liq) 250 Mg/5 Ml Susp 500 MG PO BID for Infection for 10 Days, #200 ML 0 Refills Prov: Danielle Fonseca MD 06/05/17 Disposition: 01 DISCHARGE HOME Condition: Stable Danielle Fonseca MD Jun 05, 2017 01:40
[2017-06-05] MEDS ORDERED: LEVOFLOXACIN ORAL SOLN 2500 MG/100 ML BOTTLE NG ONE (01:45)
[2017-06-05] MEDS ORDERED: LEVO25SO PO (02:05)
[2017-06-05] MEDS ORDERED: LEVO25SO G-TUBE (02:09)
[2017-06-05] MEDS ORDERED: SODIUM CHLOR 0.9% 1000 ML INJ 1,000 ML IV ONE ×2 (02:15)
[2017-06-05] MEDS ORDERED: SODIUM CHLORIDE 0.9% FLUSH 10 ML FLUSH IV FLUSH PRN (03:00)
[2017-06-05] MEDS ORDERED: diphenhydrAMINE HCL 50 MG/ML VIAL IVP ONE (03:00)
[2017-06-05] MEDS ORDERED: FAMOTIDINE 20 MG/2 ML VIAL IV PUSH ONE (03:00)
[2017-06-05] MEDS ORDERED: methylPREDNISolone SOD SUCC 125 MG/2 ML VIAL IV PUSH ONE (03:00)
[2017-06-05] MEDS ORDERED: CEFT250S PO (03:29)
[2017-06-05] MEDS ORDERED: PRED5SOL G-TUBE (03:29)
== END 2017-06-05 04:38 | disposition home or self-care (01) ==
LOC: NEPC 19:58
DX: K94.23 Gastrostomy malfunction (principal); C14.0 Malignant neoplasm of pharynx, unspecified; K12.30 Oral mucositis (ulcerative), unspecified; L50.0 Allergic urticaria; T37.8X5A Adverse effect of other specified systemic anti-infectives and antiparasitics, initial encounter; Y92.238 Other place in hospital as the place of occurrence of the external cause; D61.818 Other pancytopenia; I25.10 Atherosclerotic heart disease of native coronary artery without angina pectoris; I10 Essential (primary) hypertension
CPT/HCPCS: 71045; 74018; 80053; 81001; 83605; 83690; 83735; 85007; 85027; 85610; 85730; 87040; 96374; 96375; 99284; J0692; J1200; J2405; J2930; J7030

== ENCOUNTER 2017-08-09 10:31 | Day surgery (SDC) | payer OTHER ==
[~2017-08-09 10:31] MED LIST changes: +CEFT250S PO; +PRED5SOL G-TUBE
[2017-08-09 10:47] VITALS: BP 115/87; PULSE 51; RESP 18; TEMP 98; O2SAT 94
== END 2017-08-09 12:30 | disposition home or self-care (01) ==
LOC: HROP 10:31 → HRIP 10:32 → HROP 12:30
PROVIDERS: ATTEND Radiology Radiation Oncology
DX: C09.8 Malignant neoplasm of overlapping sites of tonsil (principal)
CPT/HCPCS: 99211; G0463